=== PATIENT | female | born 2000 | race Caucasian/White ===

== ENCOUNTER 2019-05-25 13:44 | Inpatient (IN) | payer MEDICAID ==
[2019-05-25] MEDS ORDERED: AMPICILLIN 2 GM/NS (PMX) 100 ML (13:50)
[2019-05-25] MEDS ORDERED: MISOPROSTOL 200 MCG TAB PR ×2 (14:00→17:30)
[2019-05-25] MEDS ORDERED: OXYTOCIN 30 UNITS/LR 500 ML IV ×2 (14:00→17:30)
[2019-05-25] MEDS ORDERED: CARBOPROST 250 MCG INJ IM ×2 (14:00→17:30)
[2019-05-25] MEDS ORDERED: BUTORPHANOL 2 MG INJ IV (14:00)
[2019-05-25 14:05] LABS: ADD MAN DIFF? NO
[2019-05-25 14:06] LABS: WHITE BLOOD COUNT 11.3 10^3/ul (4.8-10.8)
[2019-05-25 14:06] LABS: BASOPHIL # 0.1 10^3/ul (0.0-0.1); BASOPHILS % 0.4 % (0.0-2.0); EOSINOPHILS % 0.1 % (0.0-7.0); HEMOGLOBIN 13.5 g/dl (12.0-16.0); LYMPHOCYTES # 1.4 10^3/ul (0.8-2.9); LYMPHOCYTES % 12.3 % (18.0-55.0); MEAN CORPUSCULAR HGB CONC 34.6 g/dl (32.0-37.0); MEAN CORPUSCULAR VOLUME 86.7 fl (72.0-104.0); MEAN PLATELET VOLUME 9.8 fl (7.4-10.4); MONOCYTE # 0.6 10^3/ul (0.3-0.9); MONOCYTES % 5.4 % (0.0-13.0); NEUTROPHIL # 9.1 10^3/ul (1.6-7.5); NEUTROPHILS % 80.4 % (30.0-74.0); PLATELET COUNT 238 10^3/UL (140-415); RED CELL DISTRIBUTION WIDTH 13.2 % (11.5-14.5)
[2019-05-25 14:43] LABS: INR 0.89; PROTIME 12.1 Sec (11.9-14.9); PT RATIO 0.9
[2019-05-25 14:44] LABS: PARTIAL THROMBOPLASTIN TIME 25.8 Sec (23.0-35.0)
[2019-05-25] MEDS: LIDOCAINE 1% (MPF) 30 ML INJ INJ (14:44)
[2019-05-25] MEDS: AMPICILLIN 2 GM/NS (PMX) 100 ML IV (15:21)
[2019-05-25] MEDS: LACTATED RINGER'S 1,000 ML IV (15:22)
[2019-05-25] MEDS: OXYTOCIN 30 UNITS/LR 500 ML IV ×3 (15:24→16:01)
[2019-05-25] MEDS: METHYLERGONOVINE 0.2 MG INJ IM (15:32)
[2019-05-25] MEDS: IBUPROFEN 600 MG TAB PO ×3 (15:48→23:42)
[2019-05-25 15:51] LABS: RAPID PLASMA REAGIN NONREACTIVE (NR)
[2019-05-25 16:31] LABS: HEPATITIS B SURFACE ANTIGEN NEGATIVE (NEGATIVE)
[2019-05-25] MEDS ORDERED: ZOLPIDEM 5 MG TAB PO (17:30)
[2019-05-25] MEDS ORDERED: OXYCODONE/ASPIRIN (4.88/325) TAB PO (17:30)
[2019-05-25] MEDS ORDERED: METHYLERGONOVINE 0.2 MG INJ IM (17:30)
[2019-05-25] MEDS ORDERED: AMPICILLIN 1 GM/NS (PMX) 50 ML IV (18:00)
[2019-05-25] MEDS: BENZOCAINE 20% 56 ML SPRAY TOP (18:19)
[2019-05-25] MEDS: WITCH HAZEL/GLYCERIN PAD PR (18:19)
[2019-05-25] MEDS: LANOLIN HPA 1 PKT TOP (18:20)
[2019-05-25] MEDS: SENNA/DOCUSATE NA (8.6MG/50MG) TAB PO (21:27)
[2019-05-26] MEDS: IBUPROFEN 600 MG TAB PO ×3 (05:28→17:55)
[2019-05-26 08:14] LABS: ADD MAN DIFF? NO
[2019-05-26 08:28] LABS: WHITE BLOOD COUNT 10.4 10^3/ul (4.8-10.8)
[2019-05-26 08:28] LABS: BASOPHILS % 0.3 % (0.0-2.0); EOSINOPHILS # 0.1 10^3/ul (0.0-0.5); EOSINOPHILS % 0.6 % (0.0-7.0); HEMATOCRIT 33.2 % (37.0-47.0); HEMOGLOBIN 11.4 g/dl (12.0-16.0); LYMPHOCYTES # 2.3 10^3/ul (0.8-2.9); LYMPHOCYTES % 22.2 % (18.0-55.0); MEAN CORPUSCULAR HEMOGLOBIN 29.5 pg (29.0-33.0); MEAN CORPUSCULAR HGB CONC 34.3 g/dl (32.0-37.0); MEAN CORPUSCULAR VOLUME 85.8 fl (72.0-104.0); MEAN PLATELET VOLUME 9.8 fl (7.4-10.4); MONOCYTE # 0.8 10^3/ul (0.3-0.9); MONOCYTES % 7.8 % (0.0-13.0); NEUTROPHIL # 7.1 10^3/ul (1.6-7.5); NEUTROPHILS % 67.7 % (30.0-74.0); PLATELET COUNT 200 10^3/UL (140-415); RED BLOOD COUNT 3.87 10^6/ul (4.20-5.40); RED CELL DISTRIBUTION WIDTH 13.5 % (11.5-14.5)
[2019-05-26] MEDS: SENNA/DOCUSATE NA (8.6MG/50MG) TAB PO ×2 (08:54→21:35)
[2019-05-27] MEDS: IBUPROFEN 600 MG TAB PO ×3 (00:03→11:49)
[2019-05-27] MEDS: DIPHTH/TET/ACEL PERTUSS (ADULT) 0.5 ML VIAL IM* (09:00)
[2019-05-27] MEDS: SENNA/DOCUSATE NA (8.6MG/50MG) TAB PO (09:24)
[2019-05-27] MEDS: OXYCODONE/ASPIRIN (4.88/325) TAB PO (15:34)
[2019-05-28 12:07] LABS: RUBELLA ANTIBODY - IGM <20.00 AU/mL
[2019-05-28 18:26] LABS: RUBELLA ANTIBODY - IGG <0.90 index
== END 2019-05-27 17:00 | disposition home or self-care (01) | DRG 807 ==
LOC: OBT 13:44 → L-D 13:47 → PP1 18:10
PROVIDERS: Obstetrics & Gynecology
PROC: 10E0XZZ Delivery of Products of Conception, External Approach (ICD-10-PCS; principal; 2019-05-25)
DX: O80 Encounter for full-term uncomplicated delivery (principal); Z37.0 Single live birth; Z3A.40 40 weeks gestation of pregnancy
CPT/HCPCS: 85025; 85610; 85730; 86592; 86762; 86850; 86900; 86901; 87340